=== PATIENT | male | born 1960 | race Caucasian/White ===

== ENCOUNTER 2021-10-11 18:42 | Emergency (ER) | payer OTHER ==
[2021-10-11 19:01] LABS: BASOPHIL 0.2 % (0-2); EOSINOPHIL 0.1 % (0-5); HCT 42.2 % (42.0-52.0); HGB 15.4 g/dl (13.2-18.0); LYMPHOCYTE 7.6 % (15-48); MCH 32.8 pg (25.0-31.0); MCHC 36.5 g/dL (32.0-36.0); MONOCYTE 7.1 % (0-12); MPV 10.7 fL (6.0-9.5); NEUTROPHIL 84.7 % (41-80); NRBC 0; PLT 217 K/uL (150-400); RBC 4.69 M/uL (4.70-6.00); RDW 12.6 % (11.5-14.0); WBC 15.1 K/uL (4.0-10.5)
[2021-10-11 19:17] LABS: PROTHROMBIN TIME 12.6 SECONDS (11.8-13.4); PTT 31.3 SECONDS (24.4-34.7)
[2021-10-11 19:48] LABS: ALBUMIN 3.5 g/dL (3.4-5.0); BUN/CREAT RATIO (CALC) 15.9 RATIO; CREATININE 2.39 mg/dL (0.67-1.17); POTASSIUM 2.6 mmol/L (3.5-5.1); TOTAL PROTEIN 8.5 g/dL (6.4-8.2)
[2021-10-11 20:59] LABS: INFLUENZA A NAA NEGATIVE (NEGATIVE)
[2021-10-11 21:02] LABS: CORONAVIRUS 2019 SARS-COV-2 POSITIVE (NEGATIVE)
[2021-10-11 22:54] LABS: BILIRUBIN NEGATIVE (NEGATIVE); BLOOD 2+ Ery/uL (NEGATIVE); CLARITY CLEAR (CLEAR); COLOR YELLOW (YELLOW); GLUCOSE (U) 2+ mg/dL (NORMAL); LEUKOCYTES NEGATIVE Leu/uL (NEGATIVE); NITRITE NEGATIVE (NEGATIVE); PROTEIN 3+ mg/dL (NEGATIVE); SPECIFIC GRAVITY >=1.030 (1.001-1.030); UROBILINOGEN 0.2 mg/dL (0.2-1.0)
[2021-10-11 22:57] LABS: AMPHETAMINES NEGATIVE (NEGATIVE); BARBITURATES NEGATIVE (NEGATIVE); ECSTASY (MDMA) NEGATIVE (NEGATIVE); MARIJUANA (THC) POSITIVE (NEGATIVE); METHADONE NEGATIVE (NEGATIVE); OPIATES NEGATIVE (NEGATIVE); OXYCODONE NEGATIVE (NEGATIVE)
[2021-10-11 23:03] LABS: AMORPHOUS URATES CRYSTALS TRACE; BACTERIA TRACE; YEAST PRESENT
== END 2021-10-12 01:25 | disposition other institution (70) ==
LOC: FER 18:42
PROVIDERS: Emergency Medicine; Internal Medicine
DX: U07.1 COVID-19 (principal); J12.82 Pneumonia due to coronavirus disease 2019; J96.01 Acute respiratory failure with hypoxia; I16.0 Hypertensive urgency; N17.9 Acute kidney failure, unspecified; I12.9 Hypertensive chronic kidney disease with stage 1 through stage 4 chronic kidney disease, or unspecified chronic kidney disease; E11.22 Type 2 diabetes mellitus with diabetic chronic kidney disease; N18.9 Chronic kidney disease, unspecified; E87.6 Hypokalemia; R47.01 Aphasia
CPT/HCPCS: 36415; 36600; 70450; 71045; 80053; 80305; 81001; 82803; 84145; 84484; 85025; 85610; 85730; 93005; 94640; 94664; C9113; J1100; J2405; J2543; J2550; J3475; J3480; J3490; J7050; U0002